=== PATIENT | female | born 1990 | race Caucasian/White ===

== ENCOUNTER 2017-03-24 09:47 | Emergency (ER) | payer BC, OTHER ==
[~2017-03-24] VITALS: Ht 170.2 cm; Wt 77.2 kg
[~2017-03-24 09:47] MED LIST: CALAN SR,COVER180 MG PO; MICROGESTIN1 EAC1 PO; OMEPRAZOLE20 MG PO; REMICADE10 MG/ML IV; VOLTAREN-XR100 MG PO
[2017-03-24] MEDS ORDERED: KLONOPIN0.5 M1 PO (10:54)
[2017-03-24 11:49] VITALS: BP 114/80
== END 2017-03-24 11:50 | disposition home or self-care (01) ==
LOC: EME 09:47
DX: F41.1 Generalized anxiety disorder (principal); K21.9 Gastro-esophageal reflux disease without esophagitis; F17.200 Nicotine dependence, unspecified, uncomplicated
CPT/HCPCS: 93005; 99281; 99283

== ENCOUNTER 2017-04-16 13:54 | Emergency (ER) | payer BC, OTHER ==
[~2017-04-16] VITALS: Ht 170.2 cm; Wt 77.0 kg
[~2017-04-16 13:54] MED LIST changes: +KLONOPIN0.5 M1 PO
[2017-04-16 14:26] LABS: HEMATOCRIT 43.4 % (36.0-46.0); MCH 32.1 PG (29.0-34.0); MCHC 35.5 G/DL (30.0-36.0); MCV 90.4 FL (83-99); MEAN PLAT.VOLUME 10.2 uM^3 (9.5-12.4); PLATELET COUNT 271 K/uL (156-360); RBC DIS.WIDTH-CV 12.1 % (11.8-14.6); RBC DIS.WIDTH-SD 39.8 % (39-53); WHITE BLOOD COUNT 10.1 K/uL (4.1-10.2)
[2017-04-16 15:02] LABS: ANION GAP 8 MEQ/L (2-14); CHLORIDE 107 MEQ/L (99-109); SAMPLE HEMOLYSIS CHECK 0; SAMPLE ICTERIC CHECK 0; SAMPLE LIPEMIA CHECK 0; SODIUM 140 MEQ/L (136-147); TOTAL BILIRUBIN 0.9 MG/DL (0.0-1.0)
[2017-04-16 15:08] LABS: ALKALINE PHOSPHATASE 66 IU/L (3-129); GFR ESTIMATE (CALCULATED) > 59 mL/min/; GLUCOSE 124 mg/dL (70-99); QUANTITATIVE HCG < 4.0 MIU/ML; UREA NITROGEN (BUN) 7 mg/dL (9-23)
[2017-04-16 16:14] LABS: ADD MIUA? NO; BILIRUBIN NEGATIVE; BLOOD NEGATIVE; COLOR STRAW ((YELLOW)); GLUCOSE (STRIP) NEGATIVE; KETONES NEGATIVE; LEUKOCYTES NEGATIVE; NITRITE NEGATIVE; PROTEIN (STRIP) NEGATIVE; SPECIFIC GRAVITY 1.008 (1.000-1.030); UCUL ADDED? NO; UROBILINOGEN 0.2 MG/DL (0.2-1.0)
[2017-04-16] MEDS ORDERED: NAPROSYN500 MG PO (18:20)
[2017-04-16] MEDS ORDERED: TRAMADOL HCL50 MG PO (18:20)
[2017-04-16 18:51] VITALS: BP 127/70
== END 2017-04-16 18:58 | disposition home or self-care (01) ==
LOC: EME 13:54
DX: N83.209 Unspecified ovarian cyst, unspecified side (principal); M54.5 Low back pain; R11.2 Nausea with vomiting, unspecified; R39.11 Hesitancy of micturition; Z72.0 Tobacco use
CPT/HCPCS: 74177; 80053; 81003; 84702; 85027; 99281; 99285; J7040

== ENCOUNTER 2017-11-15 11:40 | Emergency (ER) | payer BC, OTHER ==
[~2017-11-15] VITALS: Ht 170.2 cm; Wt 74.3 kg
[~2017-11-15 11:40] MED LIST changes: +NAPROSYN500 MG PO; +TRAMADOL HCL50 MG PO
[2017-11-15] MEDS ORDERED: MICROGESTIN FE1 EAC1 PO (11:53)
[2017-11-15] MEDS ORDERED: AMOX TR-K CLV1 EAC4 PO (11:55)
[2017-11-15 12:53] LABS: HEMATOCRIT 42.9 % (36.0-46.0); HEMOGLOBIN 14.6 G/DL (11.9-15.5); MCH 30.8 PG (29.0-34.0); MCV 90.5 FL (83-99); PLATELET COUNT 326 K/uL (156-360); RBC DIS.WIDTH-CV 12.3 % (11.8-14.6); RBC DIS.WIDTH-SD 40.9 % (39-53); RED BLOOD COUNT 4.74 M/uL (3.80-5.20); WHITE BLOOD COUNT 6.6 K/uL (4.1-10.2)
[2017-11-15 13:08] LABS: ALBUMIN 3.8 g/dL (3.2-4.8); CHLORIDE 108 mEq/L (99-109); POTASSIUM 4.5 mEq/L (3.7-5.4); SODIUM 140 mEq/L (136-147)
[2017-11-15 13:10] LABS: GLUCOSE 85 mg/dL (70-99)
[2017-11-15 13:11] LABS: TOTAL PROTEIN 7.2 g/dL (6.4-8.3)
[2017-11-15 13:12] LABS: TOTAL BILIRUBIN 0.7 mg/dL (0.0-1.0)
[2017-11-15 13:14] LABS: ALKALINE PHOSPHATASE 53 IU/L (3-129); CREATININE 0.8 mg/dL (0.6-1.3); GFR ESTIMATE (CALCULATED) > 59 mL/min/
[2017-11-15 13:15] LABS: UREA NITROGEN (BUN) 13 mg/dL (9-23)
[2017-11-15 13:16] LABS: AST (GOT) 14 IU/L (2-34)
[2017-11-15 13:17] LABS: ALT (GPT) 13 IU/L (3-49)
[2017-11-15] MEDS ORDERED: PREDNISONE20 MG PO (14:42)
[2017-11-15 16:49] LABS: MONOSPOT (MONONUCLEOSIS SEROL) NEGATIVE
[2017-11-15 16:51] VITALS: BP 129/73
== END 2017-11-15 16:53 | disposition home or self-care (01) ==
LOC: EME 11:40
PROVIDERS: Nurse Practitioner Family
DX: J02.9 Acute pharyngitis, unspecified (principal)
CPT/HCPCS: 70491; 80053; 85027; 86308; 99281; 99284; J1100; J1885